=== PATIENT | male | born 1955 | race Caucasian/White ===

== ENCOUNTER 2016-07-21 00:54 | Observation (INO) | payer BC ==
[2016-07-21] MEDS ORDERED: IMDUR ER TAB 3030 MG PO (02:06)
[2016-07-21] MEDS ORDERED: NORVASC 5 MG TAB5 MG PO (02:07)
[2016-07-21] MEDS ORDERED: ASPIRIN CHEWABL81 MG PO (02:07)
[2016-07-21] MEDS ORDERED: BYSTOLIC10 MG PO (02:08)
[2016-07-21] MEDS ORDERED: GLUCOPHAGE 500500 MG PO (02:08)
[2016-07-21] MEDS ORDERED: GLUCOTROL 10 MG10 MG PO (02:09)
[2016-07-21] MEDS ORDERED: PREDNISONE10 MG PO (02:09)
[2016-07-21] MEDS ORDERED: NEXIUM40 MG PO (02:10)
[2016-07-21] MEDS ORDERED: DIOVAN160 MG PO (02:12)
[2016-07-21] MEDS ORDERED: MELOXICAM15 MG PO (02:12)
[2016-07-21] MEDS ORDERED: LIPITOR TAB 2020 MG PO (02:13)
[2016-07-21] MEDS ORDERED: PLAVIX 75 MG TA75 MG PO (02:13)
[2016-07-21] MEDS ORDERED: RITUXAN IV (02:28)
[2016-07-21 04:00] LABS: HEMOGLOBIN 14.9 gm/dl (14.0-17.5); RED BLOOD COUNT 5.08 M/UL (4.20-5.50); WHITE BLOOD COUNT 12.8 K/UL (4.5-11.0)
[2016-07-21 04:24] LABS: BUN/CREATININE RATIO 13 (0-10)
[2016-07-22 04:26] LABS: HEMOGLOBIN 14.8 gm/dl (14.0-17.5); RED BLOOD COUNT 5.01 M/UL (4.20-5.50); WHITE BLOOD COUNT 12.1 K/UL (4.5-11.0)
[2016-07-22 05:01] LABS: BUN/CREATININE RATIO 21 (0-10)
[2016-07-22] MEDS ORDERED: MELOXICAM15 MG PO (11:20)
== END 2016-07-22 13:40 | disposition home or self-care (01) ==
LOC: CCU 00:54
PROVIDERS: Family Medicine; Internal Medicine; ADMIT Internal Medicine
DX: I25.119 Atherosclerotic heart disease of native coronary artery with unspecified angina pectoris (principal); I10 Essential (primary) hypertension; E11.9 Type 2 diabetes mellitus without complications; E78.5 Hyperlipidemia, unspecified; Z88.8 Allergy status to other drugs, medicaments and biological substances; Z79.82 Long term (current) use of aspirin; Z79.899 Other long term (current) drug therapy; Z90.49 Acquired absence of other specified parts of digestive tract
CPT/HCPCS: ECHO; 36415; 71010; 78452; 80048; 80053; 82550; 82553; 82962; 83036; 83735; 84439; 84443; 84484; 85025; 85027; 85347; 93005; 93017; 93306; 93571; 94664; 96374; 96375; A9502; C1769; C1887; C1894; G0378; G0379; J0153; J1644; J2250; J2270; J2405; J2785; J3010; J7030; Q9963